=== PATIENT | male | born 1975 | race Caucasian/White ===

== ENCOUNTER 2025-01-31 11:23 | Emergency (ER) | payer BC ==
[~2025-01-31] VITALS: Ht 177.8 cm; Wt 81.6 kg
[2025-01-31] MEDS: IV NS 0.9% 1,000 ML BAG IV ONE (12:00)
[2025-01-31] MEDS: ACETAMINOPHEN ES 500 MG TABLET PO ONE (12:00)
[2025-01-31] MEDS ORDERED: METOCLOPRAMIDE HCL 10 MG/2 ML VIAL ONE (12:07)
[2025-01-31] MEDS ORDERED: KETOROLAC TROMETHAMINE 15 MG/ML VIAL ONE (12:07)
[2025-01-31] MEDS ORDERED: ACETAMINOPHEN ES 500 MG TABLET ONE (12:07)
[2025-01-31] MEDS ORDERED: diphenhydrAMINE HCL 50 MG/ML VIAL ONE (12:07)
[2025-01-31] MEDS: diphenhydrAMINE HCL 50 MG/ML VIAL IV ONE (12:15)
[2025-01-31] MEDS: METOCLOPRAMIDE HCL 10 MG/2 ML VIAL IV ONE (12:17)
[2025-01-31] MEDS: KETOROLAC TROMETHAMINE 15 MG/ML VIAL IV ONE (12:19)
[2025-01-31 14:16] VITALS: BP 139/91; TEMP 98.3; O2SAT 99
== END 2025-01-31 14:16 | disposition home or self-care (01) ==
LOC: ER 11:41
DX: R51.9 Headache, unspecified (principal); I10 Essential (primary) hypertension; E78.5 Hyperlipidemia, unspecified; F12.11 Cannabis abuse, in remission; I25.2 Old myocardial infarction; F17.200 Nicotine dependence, unspecified, uncomplicated; Z79.899 Other long term (current) drug therapy; Z95.5 Presence of coronary angioplasty implant and graft; Z86.69 Personal history of other diseases of the nervous system and sense organs; Z87.09 Personal history of other diseases of the respiratory system
CPT/HCPCS: 99284; 96374; 96375; 96361; 99406; J1885; J1200; J2765; J7030